=== PATIENT | female | born 1995 | race Caucasian/White ===

== ENCOUNTER 2016-12-30 22:48 | Inpatient (IN) | payer OTHER ==
[~2016-12-30] VITALS: Ht 165.1 cm; Wt 55.9 kg
[~2016-12-30 22:48] MED LIST: FLAGYL500 MG PO; HYDROCODON-ACE1 EAC4 PO; LEVAQUIN500 MG PO; ZOFRAN4 MG PO
[2016-12-31 01:08] LABS: HEMOGLOBIN 13.2 gm/dl (12.3-15.3); RED BLOOD COUNT 4.55 M/UL (4.00-5.10); WHITE BLOOD COUNT 20.7 K/UL (4.5-11.0)
[2016-12-31 01:15] LABS: BUN/CREATININE RATIO 17 (0-10)
[2017-01-01 03:54] LABS: RED BLOOD COUNT 3.57 M/UL (4.00-5.10); WHITE BLOOD COUNT 12.3 K/UL (4.5-11.0)
[2017-01-01 03:55] LABS: HEMOGLOBIN 10.1 gm/dl (12.3-15.3)
[2017-01-01 04:26] LABS: BUN/CREATININE RATIO 24 (0-10)
[2017-01-01] MEDS ORDERED: FLAGYL500 MG PO (14:00)
[2017-01-01] MEDS ORDERED: CIPROFLOXACIN500 MG PO (14:03)
== END 2017-01-01 15:55 | disposition home or self-care (01) | DRG 872 ==
LOC: ER1 22:48 → PROG CARE 12-31 04:11 → ZEROF 12-31 04:11 → PROG CARE 12-31 06:45
PROVIDERS: Emergency Medicine; ADMIT Internal Medicine
DX: A41.9 Sepsis, unspecified organism (principal); A09 Infectious gastroenteritis and colitis, unspecified; K56.60 Unspecified intestinal obstruction; F17.200 Nicotine dependence, unspecified, uncomplicated; Z88.0 Allergy status to penicillin; Z83.79 Family history of other diseases of the digestive system
CPT/HCPCS: 36415; 80048; 80053; 81001; 83605; 83690; 84703; 85025; 85027; 86140; 87040; 87045; 87046; 87086; 89055; 96361; 96365; 96366; 96367; 96375; 96376; 99284; C9113; J1100; J1885; J1956; J2270; J2405; J7030